=== PATIENT | male | born 1980 | race Caucasian/White ===

== ENCOUNTER → 2021-03-09 | Outpatient (CLI) | payer MEDICARE ==
[~2021-03-09] VITALS: Ht 177.8 cm; Wt 126.0 kg
[2021-03-09 11:22] VITALS: BP 105/59
== END | disposition home or self-care (01) ==
LOC: SRCNTR 10:59
PROVIDERS: ATTEND Internal Medicine
DX: I27.20 Pulmonary hypertension, unspecified (principal); J44.9 Chronic obstructive pulmonary disease, unspecified; R09.02 Hypoxemia; E66.8 Other obesity
CPT/HCPCS: G0463; Z7500

== ENCOUNTER 2022-01-31 08:39 | Emergency (ER) | payer MEDICARE ==
[~2022-01-31] VITALS: Ht 175.3 cm; Wt 143.2 kg
[2022-01-31] MEDS ORDERED: IPRATROPIUM BROMIDE 0.5 MG/2.5 ML NEB SOLUTION NEB ONE (08:45)
[2022-01-31] MEDS ORDERED: ALBUTEROL SULFATE 2.5 MG/0.5 ML NEB SOLUTION NEB ONE (08:45)
[2022-01-31 08:54] VITALS: BP 126/75
[2022-01-31] MEDS ORDERED: TADA20TA31 PO (09:43)
[2022-01-31] MEDS ORDERED: MACI10TA PO (09:43)
[2022-01-31] MEDS ORDERED: SELE800T PO (09:43)
[2022-01-31] MEDS ORDERED: TRAM50TA4 PO (09:43)
[2022-01-31] MEDS ORDERED: MONT-35 PO (09:43)
[2022-01-31] MEDS ORDERED: FLUT15.812 NASAL (09:43)
[2022-01-31] MEDS ORDERED: PANT-31 PO (09:43)
[2022-01-31] MEDS ORDERED: LEVO50 PO (09:43)
[2022-01-31] MEDS ORDERED: BACL10TA PO (09:43)
[2022-01-31] MEDS ORDERED: POTA-79 PO (09:43)
[2022-01-31] MEDS ORDERED: POLY250020 PO (09:43)
[2022-01-31] MEDS ORDERED: BUME1TAB34 PO (09:43)
[2022-01-31] MEDS ORDERED: ZARO5 PO (09:43)
[2022-01-31] MEDS ORDERED: DICL100G51 TP (09:43)
[2022-01-31] MEDS ORDERED: SILD20TA PO (09:43)
[2022-01-31] MEDS ORDERED: SPIR-37 PO (09:43)
[2022-01-31] MEDS ORDERED: FERR325T27 PO (09:43)
== END 2022-01-31 09:52 | disposition left against medical advice (07) ==
LOC: EMS 08:40
DX: R09.02 Hypoxemia (principal); J45.909 Unspecified asthma, uncomplicated; I11.0 Hypertensive heart disease with heart failure; I50.9 Heart failure, unspecified; J44.9 Chronic obstructive pulmonary disease, unspecified; E11.9 Type 2 diabetes mellitus without complications; I27.20 Pulmonary hypertension, unspecified; Z87.448 Personal history of other diseases of urinary system
CPT/HCPCS: 94640; 99284